=== PATIENT | male | born 1995 | race Hispanic/Latino ===

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

== ENCOUNTER 2017-05-06 15:19 | Emergency (ER) | payer OTHER ==
[~2017-05-06] VITALS: Ht 175.3 cm; Wt 86.4 kg
[~2017-05-06 15:19] MED LIST: IBUP-1114 PO; OXYC-517 PO
[2017-05-06 15:20] VITALS: BP 107/66
== END 2017-05-06 16:05 | disposition home or self-care (01) ==
LOC: M ED 15:19
DX: L76.82 Other postprocedural complications of skin and subcutaneous tissue (principal); T81.30XA Disruption of wound, unspecified, initial encounter; Z98.890 Other specified postprocedural states; Y92.9 Unspecified place or not applicable; Y93.9 Activity, unspecified

== ENCOUNTER 2017-11-04 11:17 | Emergency (ER) | payer OTHER ==
[2017-11-04] MEDS: IBUPROFEN 800 MG TAB PO (12:27)
[2017-11-04 13:31] LABS: INFLUENZA A AMPLIFICATION NEGATIVE (NEGATIVE); INFLUENZA B AMPLIFICATION NEGATIVE (NEGATIVE)
== END 2017-11-04 14:26 | disposition home or self-care (01) ==
LOC: M ED 11:17
DX: J20.9 Acute bronchitis, unspecified (principal)
CPT/HCPCS: 71046